=== PATIENT | female | born 1960 | race Caucasian/White ===

== ENCOUNTER 2017-05-01 08:49 | Emergency (ER) | payer OTHER ==
[2017-05-01 08:57] VITALS: BP 131/65
--- NOTE | 2017-05-01 09:13 | UC ---
Throat Pain/Nasal Jeramie HPI - HPI Summary HPI Summary: Has been feeling tired, achy, coughing for a month. Nasal congestion has markedly increased in the last couple days, today has severe L-sided head and facial ache, much worse with bending over. Get shaking chills with temps in the 99-100 range. Has had testing done for symptoms at urgent care in [place] and with PCP, has a f/u with PCP on 05/10. Lots of chest congestion, denies SOB. - History of Current Complaint Chief Complaint: UCRespiratory Stated Complaint: SINUS ISSUE Time Seen by Provider: 05/01/17 08:59 Hx Obtained From: Patient ?: No Onset/Duration: Gradual Onset, Lasting Weeks Severity: Moderate Cough: Productive Associated Signs & Symptoms: Positive: Wheezing, Sinus Discomfort, Nasal Discharge, Vomiting - with cough only Related History: Smoking - Allergies/Home Medications Allergies/Adverse Reactions: Allergies Allergy/AdvReac Type Severity Reaction Status Date / Time Hydromorphone [From Dilaudid] Allergy couldnt Verified 05/01/17 08:58 breathe PMH/Surg Hx/FS Hx/Imm Hx Previously Healthy: Yes Other History Of: Negative For: Anticoagulant Therapy - Surgical History Surgical History: Yes Surgery Procedure, Year, and Place: TUBIAL LIGATION,JULES, right ankle with screws appendix - Family History Known Family History: Positive: Hypertension - Social History Alcohol Use: None Substance Use Type: None Smoking Status (MU): Heavy Every Day Tobacco Smoker Type: Cigarettes Have You Smoked in the Last Year: Yes Household Exposure Type: Cigarettes - Immunization History Most Recent Influenza Vaccination: Never Most Recent Tetanus Shot: Pt doesn't remember Most Recent Pneumonia Vaccination: Never Review of Systems Constitutional: Fever, Chills, Fatigue Skin: Negative Eyes: Negative ENT: Sore Throat, Nasal Discharge, Sinus Congestion, Sinus Pain/Tenderness Respiratory: Cough Cardiovascular: Negative Gastrointestinal: Negative Genitourinary: Negative Motor: Negative Neurovascular: Negative Musculoskeletal: Negative Neurological: Negative Psychological: Negative Is Patient Immunocompromised?: No All Other Systems Reviewed And Are Negative: Yes Physical Exam Triage Information Reviewed: Yes Appearance: No Pain Distress, Well-Nourished Vital Signs: Initial Vital Signs Temp 97.8 F 05/01/17 08:54 Pulse 77 05/01/17 08:54 Resp 16 05/01/17 08:54 BP 131/65 05/01/17 08:54 Pulse Ox 100 05/01/17 08:54 Vital Signs Reviewed: Yes Eye Exam: Normal Eyes: Positive: Conjunctiva Clear ENT: Positive: Hearing grossly normal, Pharynx normal, Nasal congestion, TMs normal, Sinus tenderness - R maxillary. Negative: Nasal drainage Dental Exam: Normal Neck exam: Normal Respiratory Exam: Other - occ cough Respiratory: Positive: No accessory muscle use, Rhonchi, Wheezing Cardiovascular Exam: Normal Cardiovascular: Positive: RRR, No Murmur Musculoskeletal Exam: Normal Neurological Exam: Normal Neurological: Positive: Alert Psychological Exam: Normal Skin Exam: Normal Throat Pain/Nasal Course/Dx - Differential Dx/Diagnosis Provider Diagnoses: acute sinusitis. malaise/fatigue Discharge - Discharge Plan Condition: Stable Disposition: HOME Referrals: Su Schwartz NP [Primary Care Provider] -
== END 2017-05-01 09:31 | disposition home or self-care (01) ==
LOC: UCEAST 08:49
DX: J01.90 Acute sinusitis, unspecified (principal); R53.81 Other malaise; R53.83 Other fatigue; F17.210 Nicotine dependence, cigarettes, uncomplicated; Z88.5 Allergy status to narcotic agent
CPT/HCPCS: 99212; G0463

== ENCOUNTER 2019-01-24 08:05 | Emergency (ER) | payer OTHER ==
--- NOTE | 2019-01-24 08:27 | ED ---
Complex/Multi-Sys Presentation - HPI Summary HPI Summary: Patient is a 58 y/o F presenting to ED with complaints of left leg weakness, groin pain, back pain, and left knee pain. She states that she has a bull's eye rash at the back of her left knee. Patient states that a month ago, she had been working outside and returned to her home. Patient states that, at the time , she had believed she had been bitten by a mosquito and experienced pruritus at the back of her left knee. She notes redness of site gradually expanded, and she treated the site with peroxide and salt baths. A few days ago, patient experienced onset of left knee pain. Yesterday morning, 01/23/19, patient had onset of left leg weakness, groin pain, and back pain. Vomiting and fever are denied, she notes chronic abdominal pain and diarrhea. On triage, pain is rated 2/10, nothing is noted to aggravate/alleviate Sx. Patient does note that she has Hx of "nerve issues" at her back and states that she is scheduled for an MRI in two days, 01/26/19. She states that she had a family member check her leg and reports that she had a bull's eye rash at the back of her left knee. Patient notes Hx of Lyme's disease x2. However, she states that she had not notice a tick bite previously when she was bitten a month ago. No issues with urination are reported. Patient notes that she took 5/325 [place] tab at 0600 this morning 01/24/19. She took two [place] tabs yesterday 01/25/19 as well as two ASA as she states she was concerned for blood clots. Home medications and allergies are reviewed. - History Of Current Complaint Chief Complaint: EDExtremityLower Time Seen by Provider: 01/24/19 08:13 Hx Obtained From: Patient Onset/Duration: Lasting Days - left knee pain a few days ago, yesterday morning groin, back pain, left leg weakness, bull's eye rash, Still Present Timing: Days - left knee pain a few days ago, yesterday morning groin, back pain , left leg weakness, bull's eye rash Location: Pain At: - left knee, back, groin Aggravating Factor(s): nothing Alleviating Factor(s): nothing Associated Signs And Symptoms: Positive: Weakness - left leg, Diarrhea - chronic , Abdominal Pain - chronic, Back Pain, Other - positive - left knee pain, rash at back of left knee; negative - issues with urination. Negative: Vomiting, Fever - Allergies/Home Medications Allergies/Adverse Reactions: Allergies Allergy/AdvReac Type Severity Reaction Status Date / Time hydromorphone Allergy Couldn't Verified 01/24/19 08:26 breath PMH/Surg Hx/FS Hx/Imm Hx Endocrine/Hematology History: Denies: Hx Anticoagulant Therapy, Hx Diabetes Cardiovascular History: Denies: Hx Congestive Heart Failure, Hx Hypertension, Hx Pacemaker/ICD Respiratory History: Reports: Hx Seasonal Allergies GI History: Reports: Hx Gall Bladder Disease - gall stones Denies: Hx Cirrhosis, Hx Crohn's Disease, Hx Diverticulosis, Hx Gastroesophageal Reflux Disease, Hx Gastrointestinal Bleed, Hx Hiatal Hernia, Hx Irritable Bowel, Hx Jaundice, Hx Obstructive Bowel, Hx Ileostomy, Hx Pyloric Stenosis, Hx Ulcer, Other GI Disorders History: Denies: Hx Dialysis, Hx Renal Disease Musculoskeletal History: Reports: Hx Rheumatoid Arthritis, Hx Back Problems - herniated in neck and lower back Sensory History: Reports: Hx Contacts or Glasses Denies: Hx Cataracts, Hx Eye Injury, Hx Eye Prosthesis, Hx Glaucoma, Hx Legally Blind, Hx Macular Degeneration, Hx Vision Problem, Hx Deafness, Hx Hearing Aid, Hx Hearing Problem, Other Sensory Impairments Opthamlomology History: Reports: Hx Contacts or Glasses Denies: Hx Cataracts, Hx Eye Injury, Hx Eye Prosthesis, Hx Glaucoma, Hx Legally Blind, Hx Macular Degeneration, Hx Vision Problem, Other Sensory Impairments Psychiatric History: Reports: Hx Anxiety, Hx Panic Disorder - Surgical History Surgery Procedure, Year, and Place: TUBIAL LIGATION,. JULES,. right ankle with screws. appendix Hx Anesthesia Reactions: Yes Infectious Disease History: Yes Infectious Disease History: Reports: Hx Hepatitis - hep c Denies: Hx Clostridium Difficile, Hx Human Immunodeficiency Virus (HIV), Hx of Known/Suspected MRSA, Hx Shingles, Hx Tuberculosis, Hx Known/Suspected VRE, Hx Known/Suspected VRSA, History Other Infectious Disease, Traveled Outside the [place] in Last 30 Days - Family History Known Family History: Positive: Hypertension - Social History Alcohol Use: None Substance Use Type: Reports: None Hx Tobacco Use: Yes Smoking Status (MU): Current Every Day Smoker Type: Cigarettes Amount Used/How Often: 1/2 [id number] Have You Smoked in the Last Year: Yes Review of Systems Negative: Fever Positive: Abdominal Pain - chronic , Diarrhea - chronic . Negative: Vomiting Positive: no symptoms reported - no issues with urination reported Musculoskeletal: Other - positive - back pain, groin pain, left leg pain Positive: Rash - reported bull's eye rash at back of left Positive: Weakness - left leg All Other Systems Reviewed And Are Negative: Yes Physical Exam - Summary Physical Exam Summary: General: Well-developed, Obese Female. Moderate discomfort with movement. HEENT: Normocephalic, Atraumatic. Eyes: Conjuctiva normal, PERRL. Ears: TMs within normal limits. Nares: (-) discharge, (-) erythema. Oropharynx: Clear, mucous membranes moist, (-) exudates. Neck: Soft, FROM, (-) lymphadenopathy, (-) thyromegaly, (-) JVD. Cardiovascular: Normal sinus rhythm, (-) murmur. Lungs: Clear to auscultation bilaterally (-) wheezes, (-) rales, (-) rhonchi. Abdomen: Soft, non-tender, non-distended, (-) organomegaly, normal bowel sounds. Back: Patient has tenderness at right side of thoracic spine around T10, no lumbar spine/paraspinal tenderness (-) CVA tenderness Extremities: No edema. No decreased strength or sensation. Skin: Warm, dry, (-) rash. Neuro: Alert and oriented x3, no focal deficits. Psychiatric: Mood normal, affect normal. Triage Information Reviewed: Yes Vital Signs On Initial Exam: Initial Vitals Temp Pulse Resp BP Pulse Ox 98.5 F 84 18 139/80 97 01/24/19 08:06 01/24/19 08:06 01/24/19 08:06 01/24/19 08:06 01/24/19 08:06 Vital Signs Reviewed: Yes Diagnostics - Vital Signs Vital Signs Temp Pulse Resp BP Pulse Ox 01/24/19 08:06 98.5 F 84 18 139/80 97 - Laboratory Result Diagrams: 01/24/19 08:38 01/24/19 08:37 Lab Statement: Any lab studies that have been ordered have been reviewed, and results considered in the medical decision making process. Re-Evaluation - Re-Evaluation First Eval Re-Evaluation Time: 11:20 Change: Improved Comment: Patient has improvement of pain with toradol, she is ambulating somewhat better. She will be started on Doxycycline BID. Patient to follow up with PCP and she will continue to take all of her home medications. Patient agrees with plan. Complex Multi-Symp Course/Dx Course Of Treatment: Patient is a 58 y/o F presenting to ED with complaints of left leg weakness, groin pain, back pain, and left knee pain. Patient states that a month ago, she had been working outside and returned to her home. Patient states that, at the time, she had believed she had been bitten by a mosquito and experienced pruritus at the back of her left knee. A few days ago, patient experienced onset of left knee pain. Yesterday morning, 01/23/19, patient had onset of left leg weakness, groin pain, and back pain. She states that she had a family member check her leg and reports that she had a bull's eye rash at the back of her left knee. No urinary issues are reported. On physical exam, patient is noted to have moderate discomfort with movement. There is tenderness at the right thoracic spinal area around T10. No lumbar spinal/paraspinal tenderness is noted. No decreased strength or sensation noted. Patient has MCH of 34, otherwise unremarkable bloodwork. UA showed trace ketones. Patient received 30 mg IM toradol. Patient has improvement of pain with toradol, she is ambulating somewhat better. She will be started on Doxycycline BID. Patient to follow up with PCP and she will continue to take all of her home medications. Patient was given 100 mg Doxycycline PO and discharged to home. - Diagnoses Provider Diagnoses: Lyme disease, Chronic lower back pain Discharge ED - Sign-Out/Discharge Documenting (check all that apply): Patient Departure - discharge Patient Received Moderate/Deep Sedation with Procedure: No - Discharge Plan Condition: Stable Disposition: HOME Prescriptions: DOXYcycline CAP(*) [DOXYcycline 100MG CAP(*)] 100 mg PO BID #42 cap Patient Education Materials: Lyme Disease (ED), Back Pain (ED) Referrals: Radha Crook NP [Primary Care Provider] - 3 Days Additional Instructions: Continue to take your regular medications. Please follow up with your primary care physician within three days. Please return to ED for any new or worsening symptoms. - Billing Disposition and Condition Condition: STABLE Disposition: Home - Attestation Statements Document Initiated by Scribe: Yes Documenting Scribe: BRAYDEN SPRING Provider For Whom Scribe is Documenting (Include Credential): DOREEN AVALOS MD Scribe Attestation: IBRAYDEN, scribed for DOREEN AVALOS MD on 01/24/19 at 1343. Scribe Documentation Reviewed: Yes Provider Attestation: The documentation as recorded by the BRAYDEN mckeon accurately reflects the service I personally performed and the decisions made by me, DOREEN AVALOS MD Status of Scribe Document: Viewed
[2019-01-24 08:51] LABS: ABS Basophils 0.1 10^3/ul (0-0.2); ABS Eosinophils 0.1 10^3/ul (0-0.6); ABS Lymphocytes 1.7 10^3/ul (1.0-4.8); ABS Monocytes 0.5 10^3/ul (0-0.8); ABS Neutrophils 4.9 10^3/ul (1.5-7.7); Eosinophil % 1.5 %; Hematocrit 44 % (35-47); Hemoglobin 15.4 g/dL (12.0-16.0); Lymphocyte % 23.5 %; Mean Corpuscular HGB Conc 35 g/dL (31-36); Mean Corpuscular Hemoglobin 34 pg (27-31); Mean Corpuscular Volume 97 fL (80-97); Mean Platelet Volume 8.1 fL (7.4-10.4); Platelet Count 181 10^3/uL (150-450); Red Cell Distribution Width 13 % (10-15); White Blood Count 7.3 10^3/uL (3.5-10.8)
[2019-01-24 08:54] LABS: Urine Appearance Clear; Urine Bilirubin Negative (Negative); Urine Blood Negative (Negative); Urine Color Yellow; Urine Glucose Negative (Negative); Urine Ketones Trace (Negative); Urine Nitrite Negative (Negative); Urine Protein Negative (Negative); Urine Urobilinogen Negative (Negative)
[2019-01-24 09:08] LABS: C Reactive Protein 3.71 mg/L (<8.01)
[2019-01-24] MEDS ORDERED: Ketorolac INJ* 30 MG/ML 1 ML VIAL IM ONE (09:34)
[2019-01-24 09:57] LABS: Erythrocyte Sed Rate 19 mm/Hr (0-29)
[2019-01-24 10:09] LABS: Albumin 4.6 g/dL (3.2-5.2); Albumin/Globulin Ratio 1.6 (1-3); BUN/Creatinine Ratio 17.4 (8-20); Calcium 10.1 mg/dL (8.6-10.3); EGFR African American 82.3 (>60); Globulin 2.9 g/dL (2-4); Potassium 3.9 mmol/L (3.5-5.0); Total Bilirubin 0.5 mg/dL (0.2-1.0); Total Protein 7.5 g/dL (6.4-8.9)
[2019-01-24] MEDS ORDERED: DOXYcycline CAP(*) 100 MG PO ONE (11:22)
[2019-01-24 11:35] VITALS: BP 159/92
[2019-01-27 23:56] LABS: B garinii/B afzelii PCR Negative (Negative); B mayonii PCR Negative (Negative)
== END 2019-01-24 11:34 | disposition home or self-care (01) ==
LOC: ED 08:05
DX: A69.20 Lyme disease, unspecified (principal); M54.5 Low back pain; R10.9 Unspecified abdominal pain; K52.9 Noninfective gastroenteritis and colitis, unspecified; R10.30 Lower abdominal pain, unspecified; M25.562 Pain in left knee; M06.9 Rheumatoid arthritis, unspecified; Z88.5 Allergy status to narcotic agent; F17.210 Nicotine dependence, cigarettes, uncomplicated
CPT/HCPCS: 36415; 80053; 81003; 83605; 85025; 85652; 86140; 87476; 87798; 96372; 99282; A9270-GY; J1885